=== PATIENT | female | born 1985 | race Caucasian/White ===

== ENCOUNTER 2017-01-30 11:03 | Outpatient (CLI) | payer OTHER ==
--- NOTE | 2017-01-30 12:12 | RAD ---
RIGHT SHOULDER THREE VIEWS: Indication: Pain, acute onset. FINDINGS: No fracture or dislocation. AC joint is maintained. IMPRESSION: No acute fracture or dislocation of the right shoulder. POS: [facility]
== END 2017-01-30 11:04 | disposition home or self-care (01) ==
LOC: SCSRAD 11:03
PROVIDERS: ATTEND Nurse Practitioner Family
DX: M25.511 Pain in right shoulder (principal)

== ENCOUNTER 2018-07-27 16:45 | Emergency (ER) | payer BC, OTHER ==
[2018-07-27 17:20] LABS: Pregnancy Test - Urine (BHCG) Negative (Negative); Pregu Control Background? CLEAR/WHITE (CLR/WHITE); Pregu Control Bar Appear? YES (CONTROL BAR)
[2018-07-27 17:23] LABS: Bilirubin Negative (Negative); Blood, Urine Negative (Negative); Clarity Slightly Cloudy (Clear); Glucose, Urine (Dipstick) Negative (Negative); Leukocyte Trace (Negative); Nitrite Negative (Negative); Protein, Urine (Dipstick) Negative (Neg-Trace); Urobilinogen 0.2 mg/dL (0.2-1.0); pH, Urine 6.5 (5.0-9.0)
[2018-07-27] MEDS ORDERED: Ondansetron PF 4 MG/2 ML Vial ONE (17:25)
[2018-07-27] MEDS ORDERED: Ketorolac Tromethamine 30 MG/ML VIAL ONE (17:25)
[2018-07-27 17:29] LABS: #Basophils 0.1 thou/uL (0.0-0.2); #Eosinphils 0.2 thou/uL (0.0-0.7); #Lymphocytes 2.7 thou/uL (1.20-3.40); #Monocytes 0.9 thou/uL (0.11-0.59); #Neutrophils 7.5 thou/uL (1.40-6.50); %Basophils 0.9 % (0.0-1.0); %Eosinophils 1.4 % (0.0-10.0); %Lymphocytes 23.6 % (21.0-51.0); %Monocytes 7.8 % (0.0-10.0); %Neutrophils 66.3 % (42.0-75.0); Hemoglobin 14.3 g/dL (12.0-16.0); Mean Corpuscular HGB CONC 33.5 g/dL (32.0-36.0); Mean Corpuscular Hemoglobin 29.2 pg (27.0-31.0); Mean Corpuscular Volume 87.2 fL (78.0-98.0); Mean Platelet Volume 6.7 fL (7.4-10.4); Platelet Count 258 thou/uL (130-400); RBC Distribution Width 13.1 % (11.5-14.5); Red Blood Cell (RBC) Count 4.89 mill/uL (4.20-5.40); White Blood Cell (WBC) Count 11.3 thou/uL (4.8-10.8)
[2018-07-27 17:30] LABS: Bacteria/HPF 2+ HPF (None Seen); RBC/HPF 0-3 HPF (0-3); Squamous Epithelial 0-3 HPF (0-3)
[2018-07-27 17:42] LABS: ALT (SGPT) 16 U/L (8-55); AST (SGOT) 12 U/L (5-34); Albumin 4.4 g/dL (3.5-5.0); Alkaline Phosphatase 71 U/L (40-150); Anion Gap 11 mmol/L (10-20); BUN (Urea Nitrogen) 13 mg/dL (7.0-18.7); Bilirubin, Total 0.3 mg/dL (0.2-1.2); Calc. Creatinine Clearance 0 mL/min (70-130); Calcium 9.5 mg/dL (7.8-10.44); Carbon Dioxide 23 mmol/L (22-29); Chloride 109 mmol/L (98-107); Estimated GFR-MDRD Greater than 90; Globulin 2.4 g/dL (2.4-3.5); Glucose 118 mg/dL (70-105); Lipase 31 U/L (8-78); Potassium 3.7 mmol/L (3.5-5.1); Protein, Total 6.8 g/dL (6.0-8.3); Sodium 139 mmol/L (136-145)
[2018-07-27] MEDS ORDERED: Fentanyl 100 MCG/2 ML VIAL ONE (18:03)
--- NOTE | 2018-07-27 18:59 | ULT ---
Right foot 3 views HISTORY: Right foot pain and inflammation. COMPARISON: 07/12/2018. FINDINGS: Prominent soft tissue swelling about the first metatarsophalangeal joint has progressed sin ce the previous study. Lucency involving the medial aspect of the first metatarsal head has also worsened with loss of overlying cortex. Subtle erosion at the medial base of the proximal phalanx. Esthela int space narrowing. Degenerative changes throughout the remainder of the foot are again demonstrated. Subtle erosive [place] ges on each side of the second through fourth tarsometatarsal joints are apparent. IMPRESSION: Rapid progression of erosions and lucency involving the first metatarsophalangeal joint w ith worsening of adjacent soft tissue swelling. An aggressive process such as inflammatory arthropathy (gout) is of primary concern. Infection could have this appearance. Correlation with clin ical findings is required.
== END 2018-07-27 19:31 | disposition home or self-care (01) ==
LOC: SCSER 16:45
DX: R10.2 Pelvic and perineal pain (principal); J45.909 Unspecified asthma, uncomplicated; F41.9 Anxiety disorder, unspecified; Z79.899 Other long term (current) drug therapy
CPT/HCPCS: 76856; 80053; 81003; 81015; 81025; 83605; 83690; 85025; 96374; 96375; J1885; J2405; J3010

== ENCOUNTER 2020-02-16 09:17 | Outpatient (CLI) | payer BC ==
[2020-02-17 12:11] LABS: SARS-CoV-2 MS2 Positive; SARS-CoV-2 N Gene Negative; SARS-CoV-2 S Gene Negative; SARS-CoV-2 by NAA Not Detected (NotDetected); SARS-CoV-2 orf1ab Negative
== END 2020-02-16 09:18 | disposition home or self-care (01) ==
LOC: LABBT 09:17
PROVIDERS: ATTEND Obstetrics & Gynecology
DX: Z20.828 Contact with and (suspected) exposure to other viral communicable diseases (principal)
CPT/HCPCS: 87635; U0003

== ENCOUNTER 2020-02-16 12:30 | Inpatient (IN) | payer BC ==
[2020-02-16] MEDS ORDERED: Lidocaine 2% MPF 10 ML AMP (For Epidural Use) ONE (13:27)
[2020-02-16 13:29] VITALS: BMI 30.4
[2020-02-16] MEDS ORDERED: Ibuprofen 800 MG TAB PO PRN (14:00)
[2020-02-16] MEDS ORDERED: Promethazine HCl 25 MG/ML VIAL IM PRN ×3 (14:00→21:48)
[2020-02-16] MEDS ORDERED: Acetaminophen 500 MG TAB PO PRN (14:00)
[2020-02-16] MEDS ORDERED: NS / Oxytocin 40 units/1000ml 1,000 ML IV PRN (14:00)
[2020-02-16] MEDS ORDERED: Diphenoxylate HCl/Atropine Tablet PO PRN ×2 (14:00)
[2020-02-16] MEDS ORDERED: Lactated Ringer's 1,000 ML IV SCH (14:00)
[2020-02-16] MEDS ORDERED: Methylergonovine 0.2 MG/ML VIAL IM PRN (14:00)
[2020-02-16] MEDS ORDERED: Butorphanol Tartrate 1 MG/ML VIAL SLOW IVP PRN (14:00)
[2020-02-16] MEDS ORDERED: HYDROcodone/Acetaminophen 5/325 mg Tablet PO PRN ×3 (14:00→21:48)
[2020-02-16] MEDS ORDERED: Lidocaine 1% (PF) 30 ML VIAL SC PRN (14:00)
[2020-02-16] MEDS ORDERED: Misoprostol 200 MCG TAB PR PRN (14:00)
[2020-02-16] MEDS ORDERED: Carboprost 250 MCG/ML AMP IM PRN (14:00)
[2020-02-16] MEDS ORDERED: hydrALAZINE 20 MG/ML VIAL SLOW IVP PRN ×2 (14:00→21:48)
[2020-02-16] MEDS ORDERED: NS w/ Oxytocin 10 units 500 ML IV SCH ×2 (14:00)
[2020-02-16] MEDS ORDERED: Ondansetron PF 4 MG/2 ML Vial IVP PRN ×3 (14:00→21:48)
[2020-02-16 14:37] LABS: Hemoglobin 10.7 g/dL (12.0-16.0); Mean Corpuscular HGB CONC 33.7 g/dL (32.0-36.0); Mean Corpuscular Hemoglobin 27.9 pg (27.0-31.0); Mean Corpuscular Volume 82.5 fL (78.0-98.0); Mean Platelet Volume 6.6 fL (7.4-10.4); Platelet Count 333 thou/uL (130-400); RBC Distribution Width 14.7 % (11.5-14.5); Red Blood Cell (RBC) Count 3.83 mill/uL (4.20-5.40); White Blood Cell (WBC) Count 12.2 thou/uL (4.8-10.8)
[2020-02-16] MEDS ORDERED: Fentanyl 4 mcg/Bup 0.1% Cadd 100 ML ONE (14:44)
[2020-02-16 15:21] LABS: Hep B Surf Ag Non-Reactive S/CO (NonReactive)
[2020-02-16 15:27] LABS: Syphilis Antibody Nonreactive (Nonreactive); Syphilis Antibody Index 0.03 S/CO (<1.00 Non-Reactive)
[2020-02-16] MEDS ORDERED: diphenhydrAMINE 50 MG/ML VIAL IVP PRN ×2 (17:33→18:01)
[2020-02-16] MEDS ORDERED: diphenhydrAMINE 50 MG/ML VIAL ONE (17:33)
[2020-02-16] MEDS ORDERED: Lidocaine 1% (PF) 30 ML VIAL ONE (17:50)
[2020-02-16] MEDS ORDERED: NS / Oxytocin 40 units/1000ml 1,000 ML ONE (17:50)
[2020-02-16] MEDS ORDERED: Acetaminophen 325 MG TAB PO PRN (18:01)
[2020-02-16] MEDS ORDERED: EPHEDRINE 25 MG/5 ML SYRINGE SLOW IVP PRN (18:01)
[2020-02-16] MEDS ORDERED: Lactated Ringer's 500 ML IV PRN (18:01)
[2020-02-16] MEDS ORDERED: Naloxone HCl 0.4 mg/ml Vial IVP PRN ×2 (18:01)
[2020-02-16] MEDS ORDERED: Communication Order-Pharmacy FS SCH (18:15)
[2020-02-16] MEDS ORDERED: Fentanyl 4 mcg/Bupivacaine 0.1% Cassette 100 ML EPIDURAL SCH (18:15)
[2020-02-16] MEDS ORDERED: Lanolin Ointment 7 GM TUBE TOP PRN (21:48)
[2020-02-16] MEDS ORDERED: Benzocaine-Menthol 82.5 ML CAN TOP PRN (21:48)
[2020-02-16] MEDS ORDERED: diphenhydrAMINE 25 MG CAP PO PRN (21:48)
[2020-02-16] MEDS ORDERED: Milk Of Magnesia 30 ML UDCUP PO PRN (21:48)
[2020-02-16] MEDS ORDERED: Preparation H Ointment 28 GM TUBE PR PRN (21:48)
[2020-02-16] MEDS ORDERED: Bisacodyl 10 MG SUPP PR PRN (21:48)
[2020-02-16] MEDS ORDERED: Misoprostol 200 MCG TAB VAG PRN (21:48)
[2020-02-16] MEDS ORDERED: NS / Oxytocin 40 units/1000ml 1,000 ML IV SCH (21:48)
[2020-02-16] MEDS ORDERED: Docusate Calcium (SURFAK) 240 MG CAP PO SCH ×2 (21:48→22:15)
[2020-02-16] MEDS ORDERED: Zolpidem Tartrate 5 MG TAB PO PRN (21:48)
[2020-02-16] MEDS: Ibuprofen 800 MG TAB PO SCH (23:49)
[2020-02-17] MEDS: Ibuprofen 800 MG TAB PO SCH ×3 (05:57→22:10)
[2020-02-17 06:04] LABS: Hemoglobin 9.6 g/dL (12.0-16.0); Mean Corpuscular HGB CONC 34.7 g/dL (32.0-36.0); Mean Corpuscular Hemoglobin 28.9 pg (27.0-31.0); Mean Corpuscular Volume 83.3 fL (78.0-98.0); Mean Platelet Volume 6.4 fL (7.4-10.4); Platelet Count 243 thou/uL (130-400); RBC Distribution Width 14.6 % (11.5-14.5); Red Blood Cell (RBC) Count 3.33 mill/uL (4.20-5.40); White Blood Cell (WBC) Count 14.5 thou/uL (4.8-10.8)
[2020-02-17] MEDS ORDERED: Varicella virus, LIVE 0.5 ML VIAL SC ONE (09:00)
[2020-02-17] MEDS ORDERED: Measles/Mumps/Rubella 10 MCG/0.5 ML VIAL SC ONE (09:00)
[2020-02-17] MEDS ORDERED: Adacel (T-DAP) 0.5 ML SYRINGE IM ONE (09:00)
[2020-02-17] MEDS: Ferrous Sulfate 325 MG TAB PO SCH ×2 (09:29→22:11)
[2020-02-17] MEDS: Prenatal Vitamin 1 TAB PO SCH (09:30)
[2020-02-17] MEDS: Docusate Calcium (SURFAK) 240 MG CAP PO SCH ×2 (09:30→22:11)
[2020-02-17] MEDS: HYDROcodone/Acetaminophen 5/325 mg Tablet PO PRN ×3 (11:09→20:28)
[2020-02-18] MEDS: HYDROcodone/Acetaminophen 5/325 mg Tablet PO PRN (02:37)
[2020-02-18] MEDS: Ibuprofen 800 MG TAB PO SCH ×2 (05:13→13:46)
[2020-02-18 08:03] VITALS: BP 112/69; TEMP 97.8
--- NOTE | 2020-02-18 08:59 | DN ---
DATE OF PROCEDURE: 02/16/2020 TIME OF SERVICE: 2023 Central Standard Time. PREOPERATIVE DIAGNOSIS: Intrauterine at 39 weeks and 2 days with a medical induction of labor for gestational diabetes. POSTOPERATIVE DIAGNOSIS: Intrauterine at 39 weeks and 2 days with a medical induction of labor for gestational diabetes. PROCEDURE PERFORMED: Spontaneous vaginal delivery over first-degree laceration of the perineum. FINDINGS: Viable female infant, weighing 3776 g or 8 pounds 5 ounces with Apgars of 8 and 9. QUANTITATIVE BLOOD LOSS: 41 mL. COMPLICATIONS: None. PROCEDURE IN DETAIL: The patient presented to [facility] where she was admitted to the labor and delivery service. The patient underwent a normal and uneventful labor with normal cervical dilatation until she was found to be completely dilated. She was then allowed to push and was able to bring the baby down and delivered the baby in a vertex presentation without difficulties. Once the head delivered in occiput anterior position, the shoulders followed spontaneously along with the rest of the baby's body. Once out the baby's mouth and nose were bulb suctioned. The cord was clamped and cut and baby was handed to waiting attendants. Cord blood was collected. Gentle fundal massage was performed and the placenta delivered intact without problems. Hemostasis was assured. Quantitative blood loss was calculated. Inspection of the cervix, vaginal vault, and perineum did not reveal any lacerations needing suturing. Once again, hemostasis was within normal limits and the patient was allowed to recover in the labor and delivery room. Baby went to nursery. Job ID: [id number]
[2020-02-18] MEDS: Prenatal Vitamin 1 TAB PO SCH (10:05)
[2020-02-18] MEDS: Ferrous Sulfate 325 MG TAB PO SCH (10:05)
[2020-02-18] MEDS: Docusate Calcium (SURFAK) 240 MG CAP PO SCH (10:05)
== END 2020-02-18 17:50 | disposition home or self-care (01) | DRG 807 ==
LOC: L&D/OP 12:30 → L&D 17:04 → 3SW 23:59
PROVIDERS: ADMIT Obstetrics & Gynecology; ATTEND Obstetrics & Gynecology
PROC: 10E0XZZ Delivery of Products of Conception, External Approach (ICD-10-PCS; principal; 2020-02-16)
PROC: 0HQ9XZZ Repair Perineum Skin, External Approach (ICD-10-PCS; 2020-02-16)
DX: O24.429 Gestational diabetes mellitus in childbirth, unspecified control (principal); Z37.0 Single live birth; Z3A.39 39 weeks gestation of pregnancy; O70.0 First degree perineal laceration during delivery
CPT/HCPCS: 36415; 51702; 85027; 86780; 86850; 86900; 86901; 87340; 87635; J2001; J2405; J2590; U0003

== ENCOUNTER 2020-02-24 11:12 | Outpatient (CLI) | payer BC ==
--- NOTE | 2020-02-24 12:58 | RAD ---
PA AND LATERAL VIEWS CHEST: Date: 02/24/2020 HISTORY: Dyspnea, cough, shortness of breath, swelling of feet. 1 week ago. FINDINGS: The cardiomediastinum is normal. The lungs are expanded and clear. The bony thorax is normal. IMPRESSION: Normal exam. POS: [facility]
[2020-02-24 13:56] LABS: #Eosinphils 0.2 thou/uL (0.0-0.7); #Lymphocytes 1.9 thou/uL (1.20-3.40); #Monocytes 0.6 thou/uL (0.11-0.59); #Neutrophils 6.2 thou/uL (1.40-6.50); %Basophils 0.3 % (0.0-1.0); %Eosinophils 1.8 % (0.0-10.0); %Lymphocytes 21.7 % (21.0-51.0); %Monocytes 6.5 % (0.0-10.0); %Neutrophils 69.7 % (42.0-75.0); Hemoglobin 11.6 g/dL (12.0-16.0); Mean Corpuscular HGB CONC 32.6 g/dL (32.0-36.0); Mean Corpuscular Hemoglobin 28.1 pg (27.0-31.0); Mean Corpuscular Volume 86.1 fL (78.0-98.0); Mean Platelet Volume 6.6 fL (7.4-10.4); Platelet Count 356 thou/uL (130-400); RBC Distribution Width 14.5 % (11.5-14.5); Red Blood Cell (RBC) Count 4.14 mill/uL (4.20-5.40); White Blood Cell (WBC) Count 8.9 thou/uL (4.8-10.8)
[2020-02-24 14:59] LABS: ALT (SGPT) 83 U/L (8-55); AST (SGOT) 28 U/L (5-34); Albumin 3.3 g/dL (3.5-5.0); Alkaline Phosphatase 139 U/L (40-110); Anion Gap 12 mmol/L (10-20); BUN (Urea Nitrogen) 10 mg/dL (7.0-18.7); Bilirubin, Total 0.3 mg/dL (0.2-1.2); Calc. Creatinine Clearance 0 mL/min (70-130); Calcium 8.5 mg/dL (7.8-10.44); Carbon Dioxide 26 mmol/L (22-29); Chloride 110 mmol/L (98-107); Estimated GFR-MDRD Greater than 90; Globulin 2.3 g/dL (2.4-3.5); Glucose 80 mg/dL (70-105); Potassium 4.3 mmol/L (3.5-5.1); Protein, Total 5.6 g/dL (6.0-8.3); Sodium 144 mmol/L (136-145)
== END 2020-02-24 11:13 | disposition home or self-care (01) ==
LOC: SCSRAD 11:12
PROVIDERS: ATTEND Family Medicine
DX: R06.00 Dyspnea, unspecified (principal); R60.9 Edema, unspecified
CPT/HCPCS: 36415; 71046; 80053; 83880; 85025